=== PATIENT | female | born 1985 | race Caucasian/White ===

== ENCOUNTER 2020-11-05 13:03 | Emergency (ER) | payer OTHER ==
[~2020-11-05] VITALS: Ht 167.6 cm; Wt 90.7 kg
[~2020-11-05 13:03] MED LIST: CLINDAMYCIN HC150 MG PO; HYDROCODON-ACE1 EAC8 PO
[2020-11-05 13:17] VITALS: BP 139/56
[2020-11-05] MEDS ORDERED: AMOXICILLIN 50500 MG PO (13:22)
[2020-11-05] MEDS ORDERED: AMOXICILLIN500 M1 PO (14:05)
== END 2020-11-05 14:05 | disposition home or self-care (01) ==
LOC: ER 13:03
DX: K04.7 Periapical abscess without sinus (principal); Z90.49 Acquired absence of other specified parts of digestive tract; Z98.890 Other specified postprocedural states; Z79.899 Other long term (current) drug therapy; Z88.6 Allergy status to analgesic agent